=== PATIENT | male | born 1970 | race African-American/Black ===

== ENCOUNTER 2023-11-21 23:29 | Inpatient (IN) | payer OTHER ==
[2023-11-21 23:56] VITALS: BMI 23.5
[2023-11-22] MEDS ORDERED: ONDANSETRON *ODT* 4 MG TABLET SL PRN (01:19)
[2023-11-22] MEDS ORDERED: MAG HYDROX/AL HYDROX/SIMETH 30 ML UNIT-DOSE CUP PO PRN (01:19)
[2023-11-22] MEDS ORDERED: guaiFENesin 600 MG TABLET.ER (FP) PO PRN (01:19)
[2023-11-22] MEDS ORDERED: NICOTINE POLACRILEX 2 MG GUM BUC PRN (01:19)
[2023-11-22] MEDS ORDERED: BENZONATATE 200 MG CAPSULE PO PRN (01:19)
[2023-11-22] MEDS ORDERED: BISMUTH SUBSALICYLATE 524 MG/30 ML PO PRN (01:19)
[2023-11-22] MEDS ORDERED: DICYCLOMINE HCL 10 MG CAPSULE PO PRN (01:19)
[2023-11-22] MEDS ORDERED: NALOXONE HCL 0.4 MG/ML VIAL IM PRN (01:19)
[2023-11-22] MEDS ORDERED: LOPERAMIDE HCL 2 MG CAPSULE PO PRN (01:19)
[2023-11-22] MEDS ORDERED: BENZOCAINE/MENTHOL (CHLORASEPTIC ) LOZENGE MM PRN (01:19)
[2023-11-22] MEDS ORDERED: MAGNESIUM HYDROX 2400MG/30ML ORAL SUSPENSION 30 ML CUP PO PRN (01:19)
[2023-11-22] MEDS ORDERED: POLYETHYLENE GLYCOL (HEALTHYLAX) 3350 17 GM PACKET PO PRN (01:19)
[2023-11-22] MEDS ORDERED: IBUPROFEN 400 MG TABLET (FP) PO PRN (01:19)
[2023-11-22] MEDS ORDERED: NALOXONE (NARCAN) HCL 4 MG/0.1 ML SPRAY NS PRN (01:19)
[2023-11-22] MEDS ORDERED: ALBUTEROL SO4 HFA INHALER IH PRN (08:07)
[2023-11-22] MEDS: methaDONE HCL 10 MG TABLET (FOR DETOX USE ONLY) PO ONE (08:53)
[2023-11-22] MEDS: BUPRENORPHINE/NALOXONE 0.5 MG/0.125 MG FILM SL ONE ×2 (08:54→22:20)
[2023-11-22] MEDS: PRENATAL VITAMINS W/ FOLIC ACID TABLET (FP) PO SCH (09:16)
[2023-11-22] MEDS: NICOTINE 21 MG/24 HOURS TOPICAL PATCH TD SCH (09:16)
[2023-11-22] MEDS: cloNIDine HCL 0.1 MG TABLET PO SCH (09:20)
[2023-11-22] MEDS: METHOCARBAMOL 500 MG TABLET PO PRN (17:01)
[2023-11-22] MEDS: hydrOXYzine PAMOATE 25 MG CAPSULE (FP) PO PRN (17:01)
[2023-11-22] MEDS: MELATONIN 5 MG TABLETS PO SCH (22:21)
[2023-11-22] MEDS: THIAMINE 100 MG TABLET PO SCH (22:21)
[2023-11-22] MEDS: IBUPROFEN 600 MG TABLET (FP) PO PRN (22:25)
[2023-11-23] MEDS: BUPRENORPHINE/NALOXONE 0.5 MG/0.125 MG FILM SL SCH (09:40)
[2023-11-23 12:03] LABS: HEMOGLOBIN 14.3 GM/dL (11.7-16.9); MCH 28.1 pg (25.7-33.7); MCHC 31.8 g/dl (32.0-35.9); MEAN CELL VOLUME 88.3 fl (80-96); MEAN PLT VOLUME 8.7 fl (7.5-11.1); PLATELET COUNT 278 10^3/uL (134-434); RDW 14.9 % (11.9-15.9); WHITE BLOOD COUNT 4.4 K/mm3 (4.0-10.0)
[2023-11-23 12:18] LABS: POTASSIUM 3.9 mmol/L (3.5-5.1)
[2023-11-23 12:21] LABS: CALCIUM 8.8 mg/dL (8.5-10.1)
[2023-11-23 12:22] LABS: ALBUMIN 2.7 g/dl (3.4-5.0); BLOOD UREA NITROGEN 12.7 mg/dL (7-18)
[2023-11-23 12:25] LABS: CREATININE 1.1 mg/dL (0.55-1.3)
[2023-11-23 12:27] LABS: BILIRUBIN,TOTAL 0.7 mg/dL (0.2-1); TOT PROT 5.3 g/dl (6.4-8.2)
[2023-11-23] MEDS: QUEtiapine FUMARATE 100 MG TABLET (FP) PO SCH (22:03)
[2023-11-24] MEDS: methaDONE HCL 10 MG TABLET (FOR DETOX USE ONLY) PO ONE (09:35)
[2023-11-24] MEDS: BUPRENORPHINE/NALOXONE 2 MG/0.5 MG FILM PACKET SL SCH (09:36)
[2023-11-25] MEDS: BUPRENORPHINE/NALOXONE 4 MG/1 MG FILM PACKET SL SCH (09:40)
[2023-11-25] MEDS: NALOXONE (NYS OPIOID OVERDOSE PROGRAM) 4 MG/0.1 ML SPRAY NS ONE (14:17)
[2023-11-25] MEDS ORDERED: NALOXONE (NYS OPIOID OVERDOSE PROGRAM) 4 MG/0.1 ML SPRAY NS PRN (14:18)
[2023-11-26] MEDS: methaDONE HCL 10 MG TABLET (FOR DETOX USE ONLY) PO ONE (09:57)
[2023-11-26] MEDS: BUPRENORPHINE/NALOXONE 8 MG/2 MG FILM PACKET SL SCH (09:58)
[2023-11-26] MEDS: cloNIDine HCL 0.1 MG TABLET PO ONE (15:11)
[2023-11-27] MEDS: ACETAMINOPHEN 325 MG TABLET (FP) PO PRN (09:23)
[2023-11-27] MEDS: BUPRENORPHINE/NALOXONE 8 MG/2 MG FILM PACKET SL SCH (09:24)
[2023-11-28 12:30] VITALS: BP 107/60; PULSE 63; RESP 16; TEMP 98.7
== END 2023-11-28 12:15 | disposition other institution (70) | DRG 773 ==
LOC: YASAS 23:29 → Y6N 11-22 07:10
PROVIDERS: ADMIT Allergy & Immunology; ATTEND Surgery
PROC: HZ2ZZZZ Detoxification Services for Substance Abuse Treatment (ICD-10-PCS; principal; 2023-11-22)
DX: F11.23 Opioid dependence with withdrawal (principal); F14.20 Cocaine dependence, uncomplicated; F17.210 Nicotine dependence, cigarettes, uncomplicated; F25.9 Schizoaffective disorder, unspecified; F31.9 Bipolar disorder, unspecified; F19.282 Other psychoactive substance dependence with psychoactive substance-induced sleep disorder; F19.280 Other psychoactive substance dependence with psychoactive substance-induced anxiety disorder; F19.24 Other psychoactive substance dependence with psychoactive substance-induced mood disorder; I10 Essential (primary) hypertension; E11.9 Type 2 diabetes mellitus without complications; J45.909 Unspecified asthma, uncomplicated; Z86.19 Personal history of other infectious and parasitic diseases
CPT/HCPCS: 36415; 80053; 80305; 80307; 82962; 84484; 85025; 85027; 85610; 85730; 86593; 86780; 87811; 93005; 93010; 99284-25; J0131

== ENCOUNTER 2023-11-28 12:24 | Inpatient (IN) | payer OTHER ==
[2023-11-28] MEDS ORDERED: ALBUTEROL SO4 HFA INHALER IH ONE (13:34)
[2023-11-28] MEDS ORDERED: BENZONATATE 200 MG CAPSULE PO PRN (14:14)
[2023-11-28] MEDS ORDERED: MAGNESIUM HYDROX 2400MG/30ML ORAL SUSPENSION 30 ML CUP PO PRN (14:14)
[2023-11-28] MEDS ORDERED: BENZOCAINE/MENTHOL (CHLORASEPTIC ) LOZENGE MM PRN (14:14)
[2023-11-28] MEDS ORDERED: LOPERAMIDE HCL 2 MG CAPSULE PO PRN (14:14)
[2023-11-28] MEDS ORDERED: POLYETHYLENE GLYCOL (HEALTHYLAX) 3350 17 GM PACKET PO PRN (14:14)
[2023-11-28] MEDS ORDERED: NICOTINE POLACRILEX 4 MG LOZENGE BC PRN (14:14)
[2023-11-28] MEDS ORDERED: NICOTINE POLACRILEX 4 MG GUM BUC PRN (14:14)
[2023-11-28] MEDS ORDERED: ACETAMINOPHEN 325 MG TABLET (FP) PO PRN (14:14)
[2023-11-28] MEDS ORDERED: NICOTINE 21 MG/24 HOURS TOPICAL PATCH TD PRN (14:14)
[2023-11-28] MEDS ORDERED: guaiFENesin 600 MG TABLET.ER (FP) PO PRN (14:14)
[2023-11-28] MEDS ORDERED: NALOXONE (NARCAN) HCL 4 MG/0.1 ML SPRAY NS PRN (14:14)
[2023-11-28] MEDS ORDERED: NALOXONE HCL 0.4 MG/ML VIAL IVPUSH PRN (14:14)
[2023-11-28] MEDS: hydrOXYzine PAMOATE 25 MG CAPSULE (FP) PO PRN (21:41)
[2023-11-28] MEDS: MELATONIN 5 MG TABLETS PO SCH (21:41)
[2023-11-28] MEDS: THIAMINE 100 MG TABLET PO SCH (21:41)
[2023-11-28] MEDS: QUEtiapine FUMARATE 100 MG TABLET (FP) PO SCH (21:41)
[2023-11-28] MEDS: BUPRENORPHINE/NALOXONE 8 MG/2 MG FILM PACKET SL SCH (21:42)
[2023-11-29] MEDS: PRENATAL VITAMINS W/ FOLIC ACID TABLET (FP) PO SCH (10:15)
[2023-11-30] MEDS: IBUPROFEN 600 MG TABLET (FP) PO PRN (10:12)
[2023-11-30] MEDS ORDERED: DICYCLOMINE HCL 10 MG CAPSULE PO PRN (15:36)
[2023-11-30] MEDS ORDERED: BISMUTH SUBSALICYLATE 524 MG/30 ML PO PRN (15:36)
[2023-11-30] MEDS ORDERED: ONDANSETRON *ODT* 4 MG TABLET SL PRN (15:36)
[2023-11-30] MEDS: amLODIPine BESYLATE 5 MG TABLET (FP) PO SCH (16:36)
[2023-11-30] MEDS: ALBUTEROL SO4 HFA INHALER IH PRN (21:43)
[2023-11-30] MEDS: BACLOFEN 10 MG TABLET (FP) PO SCH (21:43)
[2023-11-30] MEDS: BUPRENORPHINE/NALOXONE 4 MG/1 MG FILM PACKET SL SCH (21:45)
[2023-11-30] MEDS: BUPRENORPHINE/NALOXONE 2 MG/0.5 MG FILM PACKET SL SCH (21:45)
[2023-12-01] MEDS: BUPRENORPHINE/NALOXONE 8 MG/2 MG FILM PACKET SL SCH (09:57)
[2023-12-02] MEDS: MAG HYDROX/AL HYDROX/SIMETH 30 ML UNIT-DOSE CUP PO PRN (21:29)
[2023-12-02] MEDS: BUPRENORPHINE/NALOXONE 4 MG/1 MG FILM PACKET SL ONE (21:45)
[2023-12-03] MEDS: METHOCARBAMOL 500 MG TABLET PO PRN (05:56)
[2023-12-03] MEDS: BUPRENORPHINE/NALOXONE 2 MG/0.5 MG FILM PACKET SL SCH (10:21)
[2023-12-03] MEDS: BUPRENORPHINE/NALOXONE 4 MG/1 MG FILM PACKET SL ONE (21:15)
[2023-12-04] MEDS: BUPRENORPHINE/NALOXONE 2 MG/0.5 MG FILM PACKET SL ONE (21:37)
[2023-12-07] MEDS: BUPRENORPHINE/NALOXONE 4 MG/1 MG FILM PACKET SL SCH (10:21)
[2023-12-07] MEDS: amLODIPine BESYLATE 5 MG TABLET (FP) PO ONE (14:00)
[2023-12-07] MEDS: BUPRENORPHINE/NALOXONE 2 MG/0.5 MG FILM PACKET SL SCH (21:15)
[2023-12-08] MEDS: amLODIPine BESYLATE 10 MG TABLET (FP) PO SCH (06:27)
[2023-12-13] MEDS ORDERED: DICYCLOMINE HCL 10 MG CAPSULE PO PRN (12:24)
[2023-12-13] MEDS ORDERED: BENZONATATE 200 MG CAPSULE PO PRN (12:24)
[2023-12-13] MEDS ORDERED: guaiFENesin 600 MG TABLET.ER (FP) PO PRN (12:24)
[2023-12-13] MEDS: hydrOXYzine PAMOATE 50 MG CAPSULE (FP) PO PRN (15:51)
[2023-12-13] MEDS: cloNIDine HCL 0.1 MG TABLET PO PRN (15:51)
[2023-12-16] MEDS: BACLOFEN 10 MG TABLET (FP) PO SCH (14:18)
[2023-12-16] MEDS: MELATONIN 5 MG TABLETS PO SCH (21:17)
[2023-12-17] MEDS: IBUPROFEN 400 MG TABLET (FP) PO PRN (01:22)
[2023-12-19] MEDS ORDERED: GABAPENTIN 300 MG CAPSULE PO SCH ×2 (14:12→22:00)
[2023-12-19] MEDS: NALTREXONE HCL 50 MG TABLET PO ONE (15:03)
[2023-12-19] MEDS: NALTREXONE HCL 50 MG TABLET PO SCH (15:35)
[2023-12-19] MEDS: cloNIDine HCL 0.1 MG TABLET PO PRN (15:37)
[2023-12-19] MEDS ORDERED: QUEtiapine FUMARATE 100 MG TABLET (FP) PO SCH (16:16)
[2023-12-19] MEDS: QUETIAPINE FUMARATE 100 MG, QUETIAPINE FUMARATE 50 MG PO SCH (21:19)
[2023-12-19] MEDS: GABAPENTIN 300 MG CAPSULE PO SCH (21:19)
[2023-12-20] MEDS ORDERED: NALTREXONE HCL 50 MG TABLET PO SCH (10:00)
[2023-12-21] MEDS ORDERED: NALTREXONE HCL 50 MG TABLET PO SCH (12:57)
[2023-12-21] MEDS: GABAPENTIN 300 MG CAPSULE PO SCH (14:05)
[2023-12-21] MEDS: NALTREXONE HCL 50 MG TABLET PO ONE (14:05)
[2023-12-22] MEDS: NALTREXONE HCL 50 MG TABLET PO SCH (10:53)
[2023-12-22] MEDS ORDERED: BENZONATATE 200 MG CAPSULE PO PRN (13:48)
[2023-12-22] MEDS ORDERED: guaiFENesin 200 MG/10 ML 10 ML UNIT-DOSE CUPS PO PRN (13:50)
[2023-12-22] MEDS: AZITHROMYCIN 250 MG TABLET PO ONE (14:07)
[2023-12-23] MEDS: GABAPENTIN 400 MG CAPSULE PO SCH (05:45)
[2023-12-23] MEDS: AZITHROMYCIN 250 MG TABLET PO SCH (09:48)
[2023-12-25] MEDS ORDERED: NALTREXONE MICROSPHERES (VIVITROL) 380 MG DISP.SYRIN IM ONE (13:54)
[2023-12-26 06:35] VITALS: RESP 16; TEMP 97.5
[2023-12-26] MEDS: NALTREXONE MICROSPHERES (VIVITROL) 380 MG DISP.SYRIN IM ONE (06:35)
[2023-12-26 07:52] VITALS: BP 130/83; PULSE 98
== END 2023-12-26 10:20 | disposition home or self-care (01) | DRG 772 ==
LOC: YASAS 12:24 → Y3W 12:26
PROVIDERS: ADMIT Psychiatry & Neurology Pain Medicine; ATTEND Psychiatry & Neurology Pain Medicine
PROC: HZ42ZZZ Group Counseling for Substance Abuse Treatment, Cognitive-Behavioral (ICD-10-PCS; principal; 2023-11-28)
DX: F10.20 Alcohol dependence, uncomplicated (principal); F11.20 Opioid dependence, uncomplicated; F14.20 Cocaine dependence, uncomplicated; F12.20 Cannabis dependence, uncomplicated; F17.210 Nicotine dependence, cigarettes, uncomplicated; F31.9 Bipolar disorder, unspecified; F20.9 Schizophrenia, unspecified; F19.282 Other psychoactive substance dependence with psychoactive substance-induced sleep disorder; F19.280 Other psychoactive substance dependence with psychoactive substance-induced anxiety disorder; F19.24 Other psychoactive substance dependence with psychoactive substance-induced mood disorder; E11.9 Type 2 diabetes mellitus without complications; I10 Essential (primary) hypertension; J45.909 Unspecified asthma, uncomplicated
CPT/HCPCS: 0241U-QW; 80305; 83036; J0475; J2315